=== PATIENT | female | born 1965 | race Caucasian/White ===

== ENCOUNTER 2017-01-20 01:28 | Emergency (ER) | payer OTHER ==
[2017-01-20 02:21] VITALS: BP 121/82; PULSE 87; TEMP 98.2; BMI 25.9
--- NOTE | 2017-01-20 02:38 | PDOC ---
History of Present Illness - General History Source: Patient Exam Limitations: No Limitations - History of Present Illness Initial Comments: 01/20/17 02:53 Patient is a 51 year old female with no significant past medical history who presents to the ED s/p twisting right knee and ankle walking in her apartment. Patient states that she slipped non syncopal, no LOC or head trauma. Patient reports swelling and pain to the right knee and ankle. She does not have any other complaints. <Stacy Reyes - Last Filed: 01/20/17 02:53> - General History Source: Patient <FranciscaAlireza - Last Filed: 01/20/17 06:19> - General Chief Complaint: Pain, Acute Stated Complaint: FALL Time Seen by Provider: 01/20/17 02:34 Past History <Stacy Reyes - Last Filed: 01/20/17 02:53> - Past Medical History Anemia: No Asthma: No Cancer: No Cardiac Disorders: No CVA: No COPD: No CHF: No Dementia: No Diabetes: No GI Disorders: No Disorders: No HTN: No Hypercholesterolemia: Yes Liver Disease: No Seizures: No Thyroid Disease: No - Immunization History Immunization Up to Date: No - Psycho/Social/Smoking Cessation Hx Anxiety: No Suicidal Ideation: No Smoking Status: No Smoking History: Never smoked Have you smoked in the past 12 months: No Number of Cigarettes Smoked Daily: 0 Information on smoking cessation initiated: No Hx Alcohol Use: No Drug/Substance Use Hx: No Substance Use Type: None, Prescribed Hx Substance Use Treatment: No <Alireza Espinosa - Last Filed: 01/20/17 06:19> - Past Medical History Allergies/Adverse Reactions: Allergies Allergy/AdvReac Type Severity Reaction Status Date / Time No Known Allergies Allergy Verified 01/20/17 02:21 Home Medications: Ambulatory Orders Diazepam [Valium -] 5 mg PO BID #10 tablet 05/19/14 Oxycodone HCl/Acetaminophen [Percocet 10-325 mg Tablet -] 1 tab PO Q8H PRN 12/17 Naproxen [Naprosyn -] 500 mg PO BID #30 tablet 01/20/17 Review of Systems - Review of Systems Able to Perform ROS?: Yes Comments:: 01/20/17 02:53 CONSTITUTIONAL: Absent: fever, chills, diaphoresis, generalized weakness, malaise, loss of appetite HEENT: Absent: rhinorrhea, nasal congestion, throat pain, throat swelling, difficulty swallowing, mouth swelling, ear pain, eye pain, visual Changes CARDIOVASCULAR: Absent: chest pain, syncope, palpitations, irregular heart rate, lightheadedness , peripheral edema RESPIRATORY: Absent: cough, shortness of breath, dyspnea with exertion, orthopnea, wheezing, stridor, hemoptysis GASTROINTESTINAL: Absent: abdominal pain, abdominal distension, nausea, vomiting, diarrhea, constipation, melena, hematochezia GENITOURINARY: Absent: dysuria, frequency, urgency, hesitancy, hematuria, flank pain, genital pain MUSCULOSKELETAL: Present: right knee swelling and pain, +right ankle pain and swelling Absent: myalgia, arthralgia SKIN: Absent: rash, itching, pallor HEMATOLOGIC/IMMUNOLOGIC: Absent: easy bleeding, easy bruising, lymphadenopathy, frequent infections ENDOCRINE: Absent: unexplained weight gain, unexplained weight loss, heat intolerance, cold intolerance NEUROLOGIC: Absent: headache, focal weakness or paresthesias, dizziness, unsteady gait, seizure, mental status changes, bladder or bowel incontinence PSYCHIATRIC: Absent: anxiety, depression, suicidal or homicidal ideation, hallucinations. <Stacy Reyes - Last Filed: 01/20/17 02:53> *Physical Exam - Vital Signs Last Vital Signs Temp Pulse Resp BP Pulse Ox 98.2 F 87 22 121/82 97 01/20/17 02:08 01/20/17 02:08 01/20/17 02:08 01/20/17 02:08 01/20/17 02:08 - Physical Exam Comments: 01/20/17 02:55 GENERAL: Well developed, well nourished. Awake and alert. +In moderate acute distress. HEENT: Normocephalic, atraumatic. PERRLA, EOMI. No conjunctival pallor. Sclerae are non -icteric. Moist mucous membranes. Oropharynx is clear. NECK: Supple. Full ROM. No JVD. Carotid pulses 2+ and symmetric, without bruits. No thyromegaly. No lymphadenopathy. CARDIOVASCULAR: Regular rate and rhythm. No murmurs, rubs, or gallops. Distal pulses are 2+ and symmetric. PULMONARY: No evidence of respiratory distress. Lungs clear to auscultation bilaterally. No wheezing, rales or rhonchi. ABDOMINAL: Soft. Non-tender. Non-distended. No rebound or guarding. No organomegaly. Normoactive bowel sounds. MUSCULOSKELETAL Normal range of motion at all joints. No bony deformities or tenderness. No CVA tenderness. EXTREMITIES: +Minimal swelling to right lateral malleolus no deformity +Mild lateral malleolus tenderness +Mild diffuse tenderness of right knee +Good ROM +No joint laceration to either joints +Minimal tenderness to left knee No cyanosis. No clubbing. No calf tenderness. SKIN: Warm and dry. Normal capillary refill. No rashes. No jaundice. NEUROLOGICAL: Alert, awake, appropriate. Cranial nerves 2-12 intact. No deficits to light touch and temperature in face, upper extremities and lower extremities. No motor deficits in the in face, upper extremities and lower extremities. Normal speech. Toes are downgoing bilaterally. PSYCHIATRIC: Cooperative. Good eye contact. Appropriate mood and affect. <Stacy Reyes - Last Filed: 01/20/17 02:53> - Vital Signs Last Vital Signs Temp Pulse Resp BP Pulse Ox 98.2 F 87 22 121/82 97 01/20/17 02:08 01/20/17 02:08 01/20/17 02:08 01/20/17 02:08 01/20/17 02:08 <Alireza Espinosa - Last Filed: 01/20/17 06:19> Medical Decision Making - Medical Decision Making 01/20/17 06:18 Dr. Espinosa: The scribe's documentation has been prepared under my direction and personally reviewed by me in its entirery. I confirm that the note above accurately reflects all work, treatment, procedures, and medical decision making performed by me. <Alireza Espinosa - Last Filed: 01/20/17 06:19> *DC/Admit/Observation/Transfer - Attestations Scribe Attestion: 01/20/17 02:56 Documentation prepared by SONIA Son, acting as medical staffing coordinator for Alireza Espinosa DO. <Stacy Reyes - Last Filed: 01/20/17 02:53> - Discharge Dispostion Admit: No <Alireza Espinosa - Last Filed: 01/20/17 06:19> Diagnosis at time of Disposition: Right ankle sprain Qualifiers: Encounter type: initial encounter Involved ligament of ankle: unspecified ligament Qualified Code(s): S93.401A - Sprain of unspecified ligament of right ankle, initial encounter Right knee sprain Qualifiers: Encounter type: initial encounter Involved ligament of knee: unspecified ligament Qualified Code(s): S83.91XA - Sprain of unspecified site of right knee , initial encounter - Discharge Dispostion Disposition: HOME Condition at time of disposition: Stable - Referrals Referrals: Ruben Fermin MD [Primary Care Provider] - - Patient Instructions Printed Discharge Instructions: DI for Ankle Sprain, DI for Knee Sprain Additional Instructions: Rest, Ice, Elevate leg as much as you can. Follow up with your doctor as needed
[2017-01-20] MEDS ORDERED: IBUPROFEN 600 MG TABLET (FP) PO STA (02:39)
[2017-01-20] MEDS ORDERED: METHOCARBAMOL 500 MG TABLET PO ONE (02:39)
[2017-01-20] MEDS ORDERED: METHOCARBAMOL 500 MG TABLET ONE (03:01)
[2017-01-20] MEDS ORDERED: IBUPROFEN 600 MG TABLET (FP) PO ONE (03:01)
== END 2017-01-20 07:20 | disposition home or self-care (01) ==
LOC: JER 01:28
DX: S83.8X1A Sprain of other specified parts of right knee, initial encounter (principal); W01.0XXA Fall on same level from slipping, tripping and stumbling without subsequent striking against object, initial encounter; Z91.81 History of falling; Y93.01 Activity, walking, marching and hiking; Y92.038 Other place in apartment as the place of occurrence of the external cause
CPT/HCPCS: 73562-TC-RT; 73610-TC-RT; 73630-TC-RT; 99282-25

== ENCOUNTER 2017-03-27 08:06 | Day surgery (SDC) | payer OTHER ==
[2017-03-24 14:34] VITALS: BMI 27.4
[2017-03-27] MEDS ORDERED: BUPIVACAINE HCL/PF 2.5 MG/ML - 30 ML VIAL IJ ONE (10:13)
[2017-03-27] MEDS ORDERED: MIDAZOLAM HCL 2 MG/2 ML SINGLE DOSE VIAL ONE (10:20)
[2017-03-27] MEDS ORDERED: KETOROLAC TROMETHAMINE 30 MG/1 ML VIAL ONE (10:48)
[2017-03-27] MEDS ORDERED: ONDANSETRON 4 MG/2 ML VIAL ONE ×2 (10:48→11:50)
[2017-03-27] MEDS ORDERED: ceFAZolin SODIUM 1 GM VIAL ONE (10:50)
[2017-03-27] MEDS ORDERED: BUPIVACAINE HCL/PF 0.25% (2.5MG/ML) 10 ML VIAL IJ ONE (11:00)
[2017-03-27] MEDS ORDERED: ONDANSETRON 4 MG/2 ML VIAL IVPUSH PRN (11:02)
[2017-03-27] MEDS ORDERED: oxyCODONE HCL 5 MG TABLET PO PRN (11:02)
[2017-03-27] MEDS ORDERED: LACTATED RINGERS SOLUTION 1,000 ML IV SCH (11:15)
[2017-03-27 12:40] VITALS: TEMP 97.5
[2017-03-27 13:36] VITALS: BP 124/81; PULSE 70
--- NOTE | 2017-03-31 14:07 | PATH ---
Surgical Pathology Report Patient Name: ELIDIA HUSAIN [facility]. Rec. #: [id number] /Age/Gender: 1965 (Age: 51) / F Account: [id number] Location: [facility] AM[facility] Taken: 03/27/2017 Received: 03/27/2017 Reported: 03/31/2017 Physicians: Misael Hamilton M.D. Specimen(s) Received RIGHT KNEE SHAVINGS Clinical History Right knee meniscal tear Final Diagnosis KNEE, RIGHT, ARTHROSCOPIC SHAVINGS: SYNOVIUM WITH MILD NONSPECIFIC CHRONIC INFLAMMATION, AND FIBROCARTILAGE WITH MYXOID DEGENERATIVE CHANGES. Electronically Signed Devang Radford M.D. Gross Description Received in formalin, labeled "right knee shaving," is a 3.5 x 2.5 x 0.3 cm. aggregate of morales-yellow soft tissue fragments. A u.s. representative portion is submitted in one cassette. /03/30/201703/30/2017
--- NOTE | 2017-03-31 15:29 | OP ---
DATE OF OPERATION: 03/27/2017 LOCATION: [facility], [place] SURGEON: Shruthi Canales MD [employer] SUPERINTENDENT: IMMANUEL Loera PREOPERATIVE DIAGNOSIS: 1. Right knee medial lateral meniscal tear. 2. Right knee cartilage injury. 3. Right knee synovitis. POSTOPERATIVE DIAGNOSIS: 1. Right knee medial lateral meniscus tear. 2. Right knee cartilage injury. 3. Right knee synovitis. PROCEDURE: 1. Right knee arthroscopy with partial meniscectomy, medial lateral meniscus - CPT 61355. 2. Right knee arthroscopy with chondroplasty and abrasion-plasty - CPT 2979. 3. Right knee arthroscopy with major - CPT 2976. FINDINGS: 1. Medial meniscus posterior horn tear - minor. 2. Lateral meniscus posterior horn tear - minor. 3. Synovitis, patellofemoral, medial lateral . 4. Antegrade 2-3 cartilage injury, anterior medial femoral condyle. 5. . 6. cartilage injury, lateral joint line. 7. Minor antegrade 4 cartilage injury site of medial plicated adhesion with minor grade 1 change of the anterior patellofemoral trochlea and patellofemoral joint. PROCEDURE: Informed consent was obtained. The patient was taken to the operating room where the right lower extremity was prepped and draped in a sterile fashion. A tourniquet was placed on the right upper thigh but not inflated. Using standard arthroscopic technique, a lateral incision and portal were made which allowed for introduction of the camera into the suprapatellar bursa. This was then taken to the medial joint line where under direct visualization, a medial incision and portal were made. Excessive synovium noted in the medial, lateral, patellofemoral and notch area was removed by the up-biting shaver and Bovie cautery. This was found to bring inflammatory tissue into the joint surface, a source of joint pain and dysfunction. Probing of the medial and lateral meniscus found tears described in the findings. These were removed with an up-biting shaver and taken back to a stable rim. Grade 2-3 degenerative changes were treated with chondroplasty, removing all flaking surfaces with low setting Bovie used along the periphery. Grade 4 changes were treated with abrasion-plasty. All areas of the knee were once again re-examined. The knee was then drained. A single suture was placed on all portals. Sterile dressing was placed. The patient was transferred to the recovery room. SRHUTHI CANALES M.D. [id number]
== END 2017-03-27 13:30 | disposition home or self-care (01) ==
LOC: FASU 08:06
PROVIDERS: ATTEND Orthopaedic Surgery
PROC: 0SBC4ZZ Excision of Right Knee Joint, Percutaneous Endoscopic Approach (ICD-10-PCS; 2017-03-27)
PROC: 0SBC4ZZ Excision of Right Knee Joint, Percutaneous Endoscopic Approach (ICD-10-PCS; 2017-03-27)
PROC: 0SBC4ZZ Excision of Right Knee Joint, Percutaneous Endoscopic Approach (ICD-10-PCS; principal; 2017-03-27 09:30)
DX: S83.241A Other tear of medial meniscus, current injury, right knee, initial encounter (principal); S83.281A Other tear of lateral meniscus, current injury, right knee, initial encounter; S83.8X1A Sprain of other specified parts of right knee, initial encounter; M65.861 Other synovitis and tenosynovitis, right lower leg; X58.XXXA Exposure to other specified factors, initial encounter; Y93.9 Activity, unspecified; Y92.9 Unspecified place or not applicable
CPT/HCPCS: 84703; 88304-TC; 94760